=== PATIENT | male | born 1990 | race Caucasian/White ===

== ENCOUNTER 2018-07-26 19:28 | Emergency (ER) | payer BC ==
[2018-07-26 19:54] VITALS: BP 143/74
--- NOTE | 2018-07-26 20:24 | EDPHY ---
H & P Time Seen by Provider: 07/26/18 19:42 HPI/ROS: This patient presents requesting an Ambien script reporting insomnia recently. He reports having some distraction recently. He reports having benefit in terms of sleep with the Ambien in the past. He also takes Vyvanse, diazepam at times and zolpidem. He denies any other complaints. He reports no other new symptoms. He has an appointment to see his therapist. He reports that he sees Dr. Arteaga. He reports no other complaints. ROS: Constitutional: No fevers HEENT: No URI symptoms Pulmonary: No complaints Cardiovascular: No complaints GI: No complaints : No complaints Psych: No suicidal ideation, no homicidal ideation. Patient is mildly agitated. Smoking Status: Current every day smoker Physical Exam: Physical Exam Vital signs are normal. General: No acute distress HEENT: Oropharynx is clear ears are clear Eyes: Pupils equal and react to light. Extraocular motions are intact. Lungs: No respiratory distress. Cardiac: Brisk capillary refill is intact throughout. Skin: No rash or pallor. Psychiatric: Patient reports some difficulty sleeping 7 he reports distraction. He denies any other complaints. Neuro: Alert and oriented x3 with no sensorimotor deficits. Constitutional: Initial Vital Signs Temperature (C) 37.5 C 07/26/18 19:50 Heart Rate 94 07/26/18 19:50 Respiratory Rate 18 07/26/18 19:50 Blood Pressure 143/74 H 07/26/18 19:50 O2 Sat (%) 95 07/26/18 19:50 O2 Delivery Mode Room Air Allergies/Adverse Reactions: No Known Allergies Allergy (Verified 07/26/18 19:43) Home Medications: Medication Instructions Recorded ZOLPIDEM TARTRATE [Ambien CR 12.5 12.5 mg PO HS 12/25/12 mg] Diazepam 07/26/18 Zolpidem Tartrate [Ambien] 10 mg PO HS PRN #20 tablet 07/26/18 MDM/Departure - MDM Medications Given: Discontinued Medications Lorazepam (Ativan 1 Mg Prepack#4) 1 btl TAKEHOME EDNOW ONE Stop: 07/26/18 22:42 Last Admin: 07/26/18 22:48 Dose: 1 btl - Depart Disposition: Home, Routine, Self-Care Clinical Impression: Insomnia Qualifiers: Insomnia type: unspecified Qualified Code(s): G47.00 - Insomnia, unspecified Condition: Good Instructions: Lorazepam (By mouth), Insomnia (ED) Additional Instructions: Diagnosis: Insomnia Plan: Ambien 1 at bedtime if needed. Proceed with your visit to see Dr. Arteaga and also with Ted. For tonight, take ativan at bedtime and call your therapist in the am Return emergency department if you have worsening symptoms. Prescriptions: Zolpidem Tartrate [Ambien] 10 mg PO HS PRN #20 tablet PRN Reason: insomnia Referrals: NONE *PRIMARY CARE P,. [Primary Care Provider] - As per Instructions Karlene Deluna MD [Medical Doctor] - As per Instructions
[2018-07-26] MEDS ORDERED: LORAZEPAM 1 MG PREPACK#4 BTL TAKEHOME ONE (22:41)
== END 2018-07-26 20:35 | disposition home or self-care (01) ==
LOC: CED 19:28
DX: G47.00 Insomnia, unspecified (principal); F17.200 Nicotine dependence, unspecified, uncomplicated
CPT/HCPCS: 99283-ER